=== PATIENT | male | born 1990 | race Caucasian/White ===

== ENCOUNTER 2021-04-29 08:17 | Emergency (ER) | payer BC ==
[~2021-04-29] VITALS: Ht 193 cm; Wt 88.9 kg
--- OUTSIDE RECORDS SUMMARY | 2021-04-29 08:24 | XMS REPORT | CCD ---
Author Author Sujit Williamson [facility] Organization iSta Masterson MD, [facility] Address [address] [place] [address] Phone Care Team Providers Care Boardinghouse Keeper Name Role Phone Sita Masterson PP Unavailable CCM Unavailable Summary Purpose Interface Exchange Insurance Providers Payer name Policy type / Coverage type Covered libertarian ID Effective Begin Date Effective End Date Blue Cross Blue [facility] Blue Cross/Blue Shield [id number] Unknown Unknown Family history Father Diagnosis Age At Onset Breast cancer Unknown Social History Social History Element Codes Description Effective Dates Marital status Unknown Mary Portillo 04/26/2021 Number of children Unknown 2 04/26/2021 Employment Unknown Currently employed [employer] 04/26/[address]: 955638403 Never smoker 04/26/2021 Alcohol history Unknown occasionally drinks alcohol 04/07 Allergies, Adverse Reactions, Alerts Substance Reaction Codes Entered Date Inactivated Date Status * NO KNOWN DRUG ALLERGIES Unknown 04/26/2021 No Inactiv e Date Active Problems Condition Codes Effective Dates Condition Status Encounter for general adult medical examination withou t abnormal findings ICD- 10: Z00.00 ICD-9: V70.0 04/26/2021 Active Enlarged lymph node ICD-10: R59.9 ICD-9: 785.6 04/26/2021 Active Medications No Medication History data Medication Administered No Medication Administered data Immunizations No Immunization data Results No Results data Procedures No Procedures data Vital Signs Date Vital 04/26/2021 Blood Pressure 1: 110/62 Code: 8480-6 BMI: 23.6 Code: 34683-0 Heart Rate 1: 68 bpm Height: 6'5" Code: 8302-2 SpO2: 99% Temperature: 3 6.6 (C) / 97.8 (F) Weight: 199 lbs Code: 58163-6 Functional Status No Functional Status data Reason For Visit Reason For Visit Effective Dates Notes well man exam (18-39 years) 04/26/2021 Encounters Encounter Performer Location Codes Date (54180) PREV VISIT NEW AGE 18-39 Diagnosis: Encounter for general adult medical examination without abnormal findings[ICD10: Z00.00] Melanie Masterson MD, [facility] CPT-4: 06823 04/26/2021 Plan of Care Planned Activity Notes Codes Status Date Visit Plan: Well Adult - pt was counsele d about diet, exercise, and encouraged to follow a heart healthy diet and increase activity level. The patient was instructed to RTC yearly for well adult exams and PRN for acute illnesses. The pt was also instructed to have yearly labs for check of cholesterol, thyroid, chem panel, CBC, and renal functioning. Enlarged lymph node to right groin - pt reports recent decrease in body fat due to focus on exercise and nutrition. Noticed the enlarged lymph node approximately 3 months ago. Has not changed. Will check labs today. Discussed potential normal finding, but will check labs to rule out other etiology. Father with history of non-hodgkins lymphoma. 04/26/2021 Patient Education: Patient Medication Summary Completed 04/26/2021 Care Plan: Cbc With Differential Pending 04/26/2021 Care Plan: Comp Metabolic Pending Care Plan: Tsh Pending 04/26/2021 Instructions Comment Date WELCOME TO [facility]! SIGN UP FOR PT PORTAL TO VIEW LABS CHECK LABS TODAY . Well Adult - pt was counseled about di et, exercise, and encouraged to follow a heart healthy diet and increase activity level. The patient was instructed to RTC yearly for well adult exams and PRN for acute illnesses. The pt was also instructed to have yearly labs for check of cholesterol, thyroid, chem panel, CBC, and renal functioning. Enlarged lymph node to right groin - pt reports recent decrease in body fat due to focus on exercise and nutrition. Noticed the enlarged lymph node approximately 3 months ago. Has not changed. Will check labs today. Discussed potential normal finding, but will check labs to rule out other etiology. Father with history of non-hodgkins lymphoma. 04/26/2021 Medical Equipment No Medical Equipment data Health Concerns Section Health Concerns data not found Goals Section Goals data not found Interventions Section Interventions data not found Health Status Evaluations/Outcomes Section Health Status Evaluations/Outcomes data not found Advance Directives No Advance Directive data
--- NOTE | 2021-04-29 08:56 | ED Cardiac General ---
History of Present Illness General Chief Complaint: Cardiac/General Problems Stated Complaint: ABNORMAL EKG Nursing Triage Note: STARTED HINGING PALPATATIONS AT 1500 YESTERDAY. TO [facility] THIS AM AND WAS TOLD TO COME TO THE ED BECAUSE OF ABNORMAL EKG AT THE CLINIC Source: patient Exam Limitations: no limitations (VIVIANA PINEDA) History of Present Illness Date Seen by Provider: Apr 29, 2021 Time Seen by Provider: 08:35 Initial Comments This is an otherwise healthy 30 YO male presenting to the ED from [facility] for abnormal EKG. Pt states last night he began feeling episodes of heart fluttering. Says the fluttering starts in his chest and goes into his neck and sometimes makes him cough. The episodes happen at random and are not associated with activity. Denies chest pain, diaphoresis, or nausea. Went to [facility] this morning for his symptoms and first EKG was normal, but a second EKG was done and the provider thought it was concerning so recommended pt come to the ER. Pt had cardiac workup about 7 years ago for similar fluttering feeling and was noted to have a small hole in his heart, but otherwise normal and has not had any problems since. Pt does note that the palpitations he has been feeling are happening more often than in the past. He says he drinks coffee occasionally at [employer], but no other caffeine. Pt notes he has been stressed lately more than usual. No history of blood clots or family history of early cardiac . Associated Systoms: No Chest Pain; Cough (VIVIANA PINEDA) Allergies and Home Medications Allergies Coded Allergies: No Known Drug Allergies (Unverified , 04/29/21) Patient Home Medication List Home Medication List Reviewed: Yes (FARIDEH BRUNER MD) Review of Systems Review of Systems Constitutional: No chills, No fever EENTM: No Blurred Vision, No Double Vision Respiratory: Denies Orthopnea, Denies Shortness of Air Cardiovascular: See HPI; Denies Chest Pain; Palpitations Gastrointestinal: Denies Abdominal Pain, Denies Nausea Genitourinary: No Symptoms Reported Musculoskeletal: No back pain, No joint pain Skin: no symptoms reported Psychiatric/Neurological: Denies Headache, Denies Numbness Endocrine: No Symptoms Reported Hematologic/Lymphatic: See HPI; Denies Blood Clots (VIVIANA PINEDA STUDENT) All Other Systems Reviewed Negative Unless Noted: Yes (Negative excepted noted.) (VIVIANA PINEDA MED STUDENT) Past Qrhnhkz-Vpeldk-Hbiarj Hx Patient Social History Tobacco Use?: No Use of E-Cig and/or Vaping dev: No Substance use?: No Alcohol Use?: No Pt feels they are or have been: No (VIVIANA PINEDA MED STUDENT) Immunizations Up To Date First/Initial COVID19 Vaccinat: yes Second COVID19 Vaccination Brian: yes COVID19 Vaccine Senior Premium Auditor: moderna (VIVIANA PINEDA STUDENT) Physical Exam Vital Signs Vital Signs - First Documented 04/29/21 08:30 Temp 36.7 Pulse 86 Resp 16 B/P (MAP) 136/85 (102) Pulse Ox 100 (FARIDEH BRUNER MD) Vital Signs Capillary Refill : Less Than 3 Seconds (VIVIANA PINEDA MED STUDENT) Height, Weight, BMI Height: '" Weight: lbs. oz. kg; 23.00 BMI Method: General Appearance: WD/WN, Anxious HEENT: PERRL/EOMI, Normal ENT Inspection Neck: Non Tender, Supple Respiratory: Lungs Clear, Normal Breath Sounds, No Accessory Muscle Use, No Respiratory Distress Cardiovascular: Regular Rate, Rhythm, No Edema, No Murmur Gastrointestinal: Non Tender, Soft; No Distended, No Guarding Extremity: Normal Inspection, Normal Range of Motion, Non Tender, No Pedal Edema Neurologic/Psychiatric: Alert, Oriented x3, No Motor/Sensory Deficits, Normal Mood/Affect Skin: Normal Color, Warm/Dry (VIVIANA PINEDA MED STUDENT) Progress/Results/Core Measures Results/Orders Lab Results Laboratory Tests Test 04/29/21 08:30 Range/Units White Blood Count 5.5 4.3-11.0 10^3/uL Red Blood Count 5.15 4.30-5.52 10^6/uL Hemoglobin 16.0 13.3-17.7 g/dL Hematocrit 49 40-54 % Mean Corpuscular Volume 94 80-99 fL Mean Corpuscular Hemoglobin 31 25-34 pg Mean Corpuscular Hemoglobin Concent 33 32-36 g/dL Red Cell Distribution Width 13.0 10.0-14.5 % Platelet Count 233 130-400 10^3/uL Mean Platelet Volume 11.0 9.0-12.2 fL Immature Granulocyte % (Auto) 0 % Neutrophils (%) (Auto) 47 42-75 % Lymphocytes (%) (Auto) 44 12-44 % Monocytes (%) (Auto) 8 0-12 % Eosinophils (%) (Auto) 0 0-10 % Basophils (%) (Auto) 1 0-10 % Neutrophils # (Auto) 2.6 1.8-7.8 10^3/uL Lymphocytes # (Auto) 2.4 1.0-4.0 10^3/uL Monocytes # (Auto) 0.4 0.0-1.0 10^3/uL Eosinophils # (Auto) 0.0 0.0-0.3 10^3/uL Basophils # (Auto) 0.1 0.0-0.1 10^3/uL Immature Granulocyte # (Auto) 0.0 0.0-0.1 10^3/uL Sodium Level 139 135-145 MMOL/L Potassium Level 4.0 3.6-5.0 MMOL/L Chloride Level 104 98-107 MMOL/L Carbon Dioxide Level 23 21-32 MMOL/L Anion Gap 12 5-14 MMOL/L Blood Urea Nitrogen 25 H 7-18 MG/DL Creatinine 1.05 0.60-1.30 MG/DL Estimat Glomerular Filtration Rate 83 BUN/Creatinine Ratio 24 Glucose Level 121 H 70-105 MG/DL Calcium Level 9.5 8.5-10.1 MG/DL Magnesium Level 2.0 1.6-2.4 MG/DL Troponin I < 0.028 <0.028 NG/ML (FARIDEH BRUNER MD) My Orders Orders - FARIDEH BRUNER MD Ed Iv/Invasive Line Start (04/29/21 08:49) Cbc With Automated Diff (04/29/21 08:49) Basic Metabolic Panel (04/29/21 08:49) Magnesium (04/29/21 08:49) Ekg Tracing (04/29/21 08:49) Chest 1 View, Ap/Pa Only (04/29/21 08:49) Troponin I Mckean (04/29/21 08:49) (FARIDEH BRUNER MD) Vital Signs/I&O 04/29/21 04/29/21 08:30 10:09 Temp 36.7 Pulse 86 74 Resp 16 16 B/P (MAP) 136/85 (102) 118/72 Pulse Ox 100 100 (FARIDEH BRUNER MD) Blood Pressure Mean: 102 Progress Progress Note : Time: 09:56 Progress Note 30-year-old male, healthy individual, chief complaint palpitations, sent from urgent care clinic for "abnormal EKG". Patient states he started feeling some palpitations in his chest last evening. He works out quite a lot. States he drinks primarily water. No stimulant use, follows a high-protein diet. Was using some creatine about 2 weeks ago other than that - no "preworkouts". No history of thyroid disease, no family history of early coronary artery disease. Actually had no chest pain, no nausea no unusual diaphoresis. Had this EKG done this morning and there was concern for some elevation so they sent him here for further evaluation. His vital signs are stable. No respiratory distress. No concerns for infectious illness. Awake alert and oriented. Completely unremarkable physical exam. Standard, routine labs including a troponin magnesium and chest x-ray were performed. All of these are normal. No concerns for ST segment elevation or depression. Reassurance is given to the patient. Return precautions are given. I have encouraged him to follow-up with Dr. Masterson. All questions are sought and answered. (FARIDEH BRUNER MD) Departure Impression Primary Impression: Palpitations Disposition: 01 HOME, SELF-CARE Condition: Stable Departure-Patient Inst. Decision time for Depature: 09:55 (FARIDEH BRUNER MD) Referrals: LORE MASTERSON MD Patient Instructions: Palpitations Add. Discharge Instructions: Continue to drink plenty of fluids to stay well-hydrated. Please follow-up with Dr. Masterson, your primary care doctor. Return to the emergency department if you develop any pain, tightness, pressure in her chest associated with the palpitations especially with nausea, sweating or any other emergent concerns. Verification and Attestation of Medical Student E/M Service A medical student performed and documented this service in my presence. I reviewed and verified all information documented by the medical student and made modifications to such information, when appropriate. I personally performed the physical exam and medical decision making. Farideh Bruner, Apr 29, 2021,09:58 (FARIDEH BRUNER MD) Copy Copies To 1: LORE MASTERSON MD, CHRISTINE MED STUDENT Apr 29, 2021 08:56 FARIDEH BRUNER MD Apr 29, 2021 09:58
[2021-04-29 09:07] LABS: CHLORIDE 104 MMOL/L (98-107); SODIUM 139 MMOL/L (135-145)
[2021-04-29 09:09] LABS: CALCIUM 9.5 MG/DL (8.5-10.1); GLUCOSE 121 MG/DL (70-105)
[2021-04-29 09:10] LABS: CARBON DIOXIDE 23 MMOL/L (21-32)
[2021-04-29 09:13] LABS: CREATININE SERUM 1.05 MG/DL (0.60-1.30); GFR ESTIMATED 83
[2021-04-29 09:14] LABS: BUN/CREATININE RATIO 24
[2021-04-29 09:25] LABS: BASOPHILS # (AUTO) 0.1 10^3/uL (0.0-0.1); BASOPHILS % (AUTO) 1 % (0-10); EOSINOPHILS % (AUTO) 0 % (0-10); HEMATOCRIT 49 % (40-54); LYMPHOCYTES # (AUTO) 2.4 10^3/uL (1.0-4.0); LYMPHOCYTES % (AUTO) 44 % (12-44); MEAN CORPUSCULAR HEMOGLOBIN 31 pg (25-34); MEAN CORPUSCULAR HGB CONC 33 g/dL (32-36); MEAN CORPUSCULAR VOLUME 94 fL (80-99); MONOCYTES # (AUTO) 0.4 10^3/uL (0.0-1.0); MONOCYTES % (AUTO) 8 % (0-12); NEUTROPHILS # (AUTO) 2.6 10^3/uL (1.8-7.8); NEUTROPHILS % (AUTO) 47 % (42-75); PLATELET COUNT 233 10^3/uL (130-400); WHITE BLOOD COUNT 5.5 10^3/uL (4.3-11.0)
--- NOTE | 2021-04-29 09:49 | Diagnostic Imaging Report ---
Indication: Heart palpitations Portable chest 9:37 AM Heart size and pulmonary vascularity are normal. Lungs are clear. There are no effusions or pneumothoraces. IMPRESSION: No acute abnormalities in the chest Dictated by: Dictated on workstation # [id number]
[2021-04-29 10:09] VITALS: BP 118/72
== END 2021-04-29 10:10 | disposition home or self-care (01) ==
LOC: ER 08:21
DX: R00.2 Palpitations (principal)
CPT/HCPCS: 36415; 71045; 80048; 83735; 84484; 85025; 93005